=== PATIENT | female | born 1985 | race Hispanic/Latino ===

== ENCOUNTER 2022-08-24 13:20 | Emergency (ER) | payer MEDICAID ==
[~2022-08-24] VITALS: Ht 160 cm; Wt 74.8 kg
[2022-08-24] MEDS ORDERED: KETOROLAC 30MG VIAL (30MG/ML) IM ONE (14:30)
[2022-08-24] MEDS ORDERED: IBUP-2070 PO (15:46)
[2022-08-24 16:13] VITALS: BP 116/78
== END 2022-08-24 16:13 | disposition home or self-care (01) ==
LOC: EDH 13:20
DX: S92.592A Other fracture of left lesser toe(s), initial encounter for closed fracture (principal); X58.XXXA Exposure to other specified factors, initial encounter; Y93.01 Activity, walking, marching and hiking; Y92.098 Other place in other non-institutional residence as the place of occurrence of the external cause; Y99.8 Other external cause status
CPT/HCPCS: 99283; 73660; 96372; J1885